=== PATIENT | male | born 1980 | race African-American/Black ===

== ENCOUNTER 2021-06-30 10:04 | Emergency (ER) | payer OTHER, SELFPAY ==
--- NOTE | ~2021-06-30 | XR_ITS ---
XR finger 1st LT min 2V 06/30/2021 10:28 INDICATION: Left first finger pain PROCEDURE: 3 views left first finger COMPARISON: No prior studies for comparison. FINDINGS: Fracture, dislocation or subluxation is not identified. The soft tissues appear within norm al limits. No foreign bodies are identified. IMPRESSION: 1: NO ACUTE BONE OR JOINT ABNORMALITY IDENTIFIED. Reviewed, dictated and finalized at location A. TRAINER
[2021-06-30 10:12] VITALS: BP 132/82; PULSE 90; RESP 16; TEMP 37.2; O2SAT 100
--- NOTE | 2021-06-30 10:27 | ED.GENADULT ---
HPI - General Adult General Chief complaint: Extremity Injury, Upper Stated complaint: L THUMB INJURY Source: patient Mode of arrival: ambulatory Limitations: no limitations History of Present Illness HPI narrative: Patient presents for evaluation of painful swollen lesion to the left hand for the last 10 days. He indicates he bumped his hand on something at work. He works as a [employer]. He states he noted some thick purulent drainage from the area. He does not provide me with a descriptive quality or numerical rating to the pain. He states that movement makes his pain worse. He denies loss of range of motion. No fever, chills, nausea, vomiting. He is not diabetic. He smokes half a pack per day. Last tetanus was 7 to 8 years ago. Related Data Home Medications Medication Instructions Recorded Confirmed brimonidine drp 06/30/21 dorzolamide-timolol 06/30/21 latanoprost drp 06/30/21 Allergies Allergy/AdvReac Type Severity Reaction Status Date / Time No Known Allergies Allergy Verified 06/30/21 10:11 Review of Systems Review of Systems: CONSTITUTIONAL: Denies fever, chills, or sweats. EYES: Denies visual changes, redness, or discharge. ENT: Denies rhinorrhea, congestion, sore throat, or otalgia. CARDIOVASCULAR: Denies chest pain, palpitations, or edema. RESPIRATORY: Denies cough or dyspnea. GASTROINTESTINAL: Denies abdominal pain, nausea, vomiting, or diarrhea. GENITOURINARY: Denies dysuria or hematuria. SKIN: Reports painful swollen lesion to the lower MUSCULOSKELETAL:Reports pain in area of left hand lesion. Denies back pain, joint pain NEUROLOGIC: Denies headache, numbness, dizziness, or weakness. PSYCHIATRIC: Denies anxiety or depression. [facility] Past Medical History Medical History (Updated 06/30/21 @ 10:48 by ELIDA Hobson, EVA) No pertinent past medical history Surgical History Surgical History History of repair of anterior cruciate ligament of right knee Family History Family History Mother No pertinent past medical history Social History Social History Smoking packs per day: 0.5 Smoking cigarettes per day: 10.0 Smoking status: Current every day smoker Alcohol intake: current Alcohol use details: social Substance use: never Occupation/Education: occupation Additional occupation/education comments: ben Gender identity (if verbalized by the patient): Male Sexual Orientation (if Verbalized by the Patient): Straight or Heterosexual Spiritual care concerns: No Exam Narrative: GENERAL: Well-appearing, well-nourished, and in no acute distress. HEAD: Normocephalic, atraumatic. EYES: PERRLA and EOMI. ENT: Nares clear, no rhinorrhea or epistaxis. Mucous membranes moist. Oropharynx without tonsillar hypertrophy exudate or other lesions. Bilateral TMs pearly briceno nonbulging NECK: Supple. No adenopathy or masses. No carotid bruits or JVD CHEST: Clear to auscultation. No respiratory distress. No wheezes rales or rhonchi HEART: Regular rate and rhythm. No murmur heard. Normal peripheral pulses. ABDOMEN: Soft, nontender, nondistended, normal active bowel sounds. EXTREMITIES: Normal range of motion. No edema. SKIN: Approximately 7mm scabbed lesion to dorsal aspect of MCP joint of left thumb with underlying induration NEURO: No focal deficits. Alert and oriented x3. PSYCH: Normal mood and affect. Course Course Emergency Course: This is a 41-year-old male that presented complaints of a painful lesion to the left hand. X-ray negative for retained foreign body. He was updated on tetanus. There does not appear to be a drainable fluid collection. Will discharge with oral antibiotics. He should follow-up outpatient for further evaluation and treatment return for worsening symptoms.
[2021-06-30] MEDS: TETANUS,DIPHTHERIA,AC PERTUSSIS ADULT (0.5 ML) BOOSTRIX IM (10:38)
== END 2021-06-30 10:54 | disposition home or self-care (01) ==
PROVIDERS: Emergency Provider Nurse Practitioner
DX: L03.114 Cellulitis of left upper limb (principal); Z23 Encounter for immunization; F17.210 Nicotine dependence, cigarettes, uncomplicated
CPT/HCPCS: 73140; 90471; 90715; 99213; G0463